=== PATIENT | female | born 1990 | race Caucasian/White ===

== ENCOUNTER 2017-10-15 08:59 | Emergency (ER) | payer SELFPAY ==
[2017-10-15] VITALS (8 sets, daily range): BP systolic 111–139; BP diastolic 60–99; PULSE 83–94; RESP 17–18
--- NOTE | 2017-10-15 10:28 | PD ---
HPI Chief Complaint Elevated BP during , headache, blurry vision, right upper quadrant pain , swelling of face, hands, and feet. Date Seen: Oct 15, 2017 Time Seen: 10:15 Travel History International Travel<30 Days: Yes Contact w/Intl Traveler<30Days: Yes Name of Country Traveled to: [facility] History of Present Illness HPI Patient is a 27-year-old at 32 weeks and 6 days with history of preeclampsia in a previous who presents to OB triage complaining of elevated blood pressure during , headache, blurry vision, right upper quadrant pain, swelling of face hands and feet. Patient has received care in the [facility]. [place] in the [place] yesterday. She reports elevated blood pressures up to 175/80 during this , starting at week 27. She was prescribed an unknown blood pressure medication 3 weeks, which was discontinued approximately 2 weeks ago. She denies aspirin use during this . Patient has also been experiencing constant headaches and back pain; Tylenol provides some relief. Headaches and swelling started at approximately 29 weeks. Patient reports swelling of face, hands and feet. She states that she often has hard time walking because of swelling. She also experiences numbness in her hands due to swelling. She has noticed that swelling has been getting worse over the last few weeks. Patient reports left calf pain. Patient reports blurry vision twice per day. She describes seeing white spots and stars. Blurry vision started Thursday. She also reports right upper quadrant pain since Thursday. She describes the pain as a sharp random pain. She reports lower abdominal and groin pain. She denies history of seizures. She denies contractions. She denies vaginal bleeding and gush of fluid. She reports positive movement. Of note, patient reports receiving 2 shots of betamethasone; she received the first shot last month and the second shot last week. Patient has had nothing to eat or drink since midnight. Weeks Gestation: 32 Para: 4 : 6 Miscarriage: 2 History Past Medical History Medical History: Denies Significant Hx Obstetric History Obstetric History G1 - full-term, vaginal G2 - full-term, vaginal G3 - 29 weeks, emergency , twin gestation; preeclampsia and placental abruption s/p blood transfusion G4 - miscarriage at 10 weeks G5 - miscarriage at 7 weeks Past Surgical History Narrative Surgical 1 Breast augmentation Liposuction Family History Family History: Negative Social History Alcohol Use: No Tobacco Use: No Substance Abuse: No Allergies-Medications (Allergen,Severity, Reaction): Coded Allergies: No Known Allergies (Unverified , 10/15/17) Home Meds Active Scripts Aspirin (Aspirin Low Dose) 81 Mg Chew, 81 MG CHEW DAILY, #30 TAB 0 Refills Prov:Jessica York MD R1 10/15/17 Pnv No.95/Ferrous Fum/Folic AC ( Vitamins Tablet) 28 Mg Iron-800 Mcg Tablet, 1 TAB PO DAILY, #30 TAB Prov:Jessica York MD R1 10/15/17 Review of Systems Except as stated in HPI: all other systems reviewed are Neg Physical Exam BP 145/99, 131/77, 123/85, 132/84, 139/99, 132/92, 132/89, 129/84 HR 95 RR 18 T 98.3 Narrative GENERAL: Well-nourished, well-developed patient. SKIN: Warm and dry. HEAD: Normocephalic and atraumatic. EYES: No scleral icterus. No injection or drainage. ENT: No nasal drainage noted. Mucous membranes pink. Airway patent. NECK: Supple, trachea midline. No JVD. CARDIOVASCULAR: Regular rate and rhythm without murmurs, gallops, or rubs. RESPIRATORY: Breath sounds equal bilaterally. No accessory muscle use. ABDOMEN/GI: Abdomen soft, tenderness over right upper quadrant, bowel sounds present, no rebound, no guarding Gravid to 32 weeks size GENITOURINARY: External Genitalia: Intact and normal in appearance Dilatation: Closed Consistency: Soft, long, thick Station: Posterior Membranes: Intact Uterine Contractions: None FHT's: Category: 1 Baseline: 140 Reactive: + Variability: Moderate Decels: None EXTREMITIES: +1 lower extremity edema, left slightly greater than right. BACK: Nontender without obvious deformity. No CVA tenderness. NEUROLOGICAL: Awake and alert. Motor and sensory grossly within normal limits. Five out of 5 muscle strength in all muscle groups. Normal speech. Data Data Vital Signs Reviewed: Yes Orders Orders Vital Signs (Adult) .ON ADMISSION (10/15/17 10:24) ^ Labor Status (10/15/17 10:24) Urinalysis - C+S If Indicated (10/15/17 10:24) ^ Non Stress Test (10/15/17 10:24) Cbc No Diff, Includes Plts (10/15/17 10:24) Comprehensive Metabolic Panel (10/15/17 10:24) Acetaminophen (Tylenol) (10/15/17 10:30) Ondansetron Inj (Zofran Inj) (10/15/17 10:30) Us Leg Venous Doppler (10/15/17 ) MDM Plan Patient is a 27-year-old at 32 weeks and 6 days with history of preeclampsia in a previous who presents to OB triage complaining of elevated blood pressure during , headache, blurry vision, right upper quadrant pain, swelling of face, hands and feet. Patient has received care in the [place]. She arrived in the [place] yesterday. * Continuous monitoring: Category: 1, Baseline: 140, Reactive: +, Variability: Moderate, Decels: None * Vitalis within normal limits. * UA -grossly within normal limits. * CBC - grossly within normal limits. * CMP grossly within normal limits. * Ultrasound left lower extremity - negative. * Discharge home. * Tylenol and warm showers for pain control. * Recommended 81mg Aspirin due to history of preeclampsia. To stop at 36 weeks. Discussed with OB hospitalist. Diagnosis Diagnosis: Primary Impression: Elevated blood pressure reading Additional Impressions: Headache Swelling Abdominal pain Ruled Out: DVT (deep vein thrombosis) in , Preeclampsia Disposition: 01 DISCHARGE HOME Condition: Stable Scripts Aspirin (Aspirin Low Dose) 81 Mg Chew 81 MG CHEW DAILY, #30 TAB 0 Refills Prov: Jessica York MD R1 10/15/17 Pnv No.95/Ferrous Fum/Folic AC ( Vitamins Tablet) 28 Mg Iron-800 Mcg Tablet 1 TAB PO DAILY, #30 TAB Prov: Jessica York MD R1 10/15/17 Referrals: Jessica York MD R1 1 week Jessica York MD R1 Oct 15, 2017 10:28
[2017-10-15] MEDS ORDERED: ONDANSETRON HCL 4 MG/2 ML VIAL IV PUSH ONE (10:30)
[2017-10-15] MEDS ORDERED: ACETAMINOPHEN 325 MG TAB PO ONE (10:30)
[2017-10-15] MEDS ORDERED: PRENTAB7 PO (10:48)
[2017-10-15 11:21] LABS: HEMATOCRIT 37.9 % (35.0-46.0); HEMOGLOBIN 12.5 GM/DL (11.6-15.3); MEAN CELL VOLUME 79.2 FL (80.0-100.0); MEAN CORPUSCULAR HGB CONC 32.9 % (32.0-36.0); MEAN PLATELET VOLUME 7.2 FL (7.0-11.0); PLATELET COUNT 364 TH/MM3 (150-450); RED BLOOD COUNT 4.79 MIL/MM3 (4.00-5.30); RED CELL DISTRIBUTION WIDTH 16.3 % (11.6-17.2); WHITE BLOOD COUNT 13.2 TH/MM3 (4.0-11.0)
[2017-10-15 11:29] LABS: BACTERIA, URINE RARE /hpf; BILIRUBIN, URINE NEG (NEG); BLOOD, URINE NEG (NEG); GLUCOSE,URINE NEG (NEG); HYALINE CAST, URINE 1 /lpf (RARE); KETONE, URINE NEG (NEG); MUCUS URINE FEW /lpf (OCC); NITRITE,URINE NEG (NEG); SQUAMOUS EPITHELIAL CELL URINE 9 /hpf (0-5); URINE COLOR YELLOW (YELLW/STRAW); URINE LEUKOCYTE ESTERASE SMALL (NEG)
--- NOTE | 2017-10-15 11:31 | RADRPT ---
EXAM DATE/TIME: 10/15/2017 10:46 [place] COMPARISON: No previous studies available for comparison. INDICATIONS : Left leg pain. MEDICAL HISTORY : 33 week . Hypertension in . Headache. Blurry vision. Swelling in feet and hands. SURGICAL HISTORY : ENCOUNTER: Initial ACUITY: 1 day PAIN SCORE: 10/10 LOCATION: Left leg. TECHNIQUE: Venous ultrasound of the leg was performed from the inguinal ligament to the proximal calf. Real-racheal e, color Doppler and spectral tracing, compression and augmentation techniques were used. FINDINGS: There is normal compressibility of the deep venous system from the inguinal region to the proximal ca lf. No echogenic clot is seen in the lumen of the common femoral, femoral, popliteal, and posterior tibial veins. There is a normal response of the venous system to proximal and distal augmentation an d respiration. CONCLUSION: No evidence of left lower extremity DVT. Benny Mendoza MD on October 15, 2017 at 11:28 Board Certified Radiologist. This report was verified electronically.
[2017-10-15 11:51] LABS: ALBUMIN 2.4 GM/DL (3.4-5.0); AST (GOT) 11 U/L (15-37); BICARBONATE 24.6 MEQ/L (21.0-32.0); BLOOD UREA NITROGEN 6 MG/DL (7-18); CALCIUM 9.2 MG/DL (8.5-10.1); CHLORIDE 105 MEQ/L (98-107); CREATININE 0.52 MG/DL (0.50-1.00); GLOMERULAR FILTRATION RATE 141 ML/MIN (>89); GLUCOSE,RANDOM 88 MG/DL (74-106); SODIUM (NA) 138 MEQ/L (136-145)
[2017-10-15 11:52] LABS: ALT (GPT) 12 U/L (10-53)
[2017-10-15 11:55] LABS: ALKALINE PHOSPHATASE 164 U/L (45-117); TOTAL BILIRUBIN ADULT 0.4 MG/DL (0.2-1.0); TOTAL PROTEIN 6.7 GM/DL (6.4-8.2)
[2017-10-15] MEDS ORDERED: ASPI81CH6 CHEW (12:11)
== END 2017-10-15 12:23 | disposition home or self-care (01) ==
LOC: HOBED 08:59
DX: O16.3 Unspecified maternal hypertension, third trimester (principal); R51 Headache; M79.89 Other specified soft tissue disorders; Z3A.32 32 weeks gestation of pregnancy; R10.11 Right upper quadrant pain; H53.8 Other visual disturbances
CPT/HCPCS: 36415; 59025; 80053; 81001; 84550; 85027; 93971

== ENCOUNTER 2017-10-26 00:32 | Emergency (ER) | payer SELFPAY ==
[2017-10-26] VITALS (9 sets, daily range): BP systolic 140–142; BP diastolic 87–96; PULSE 82–105; RESP 18
[~2017-10-26 00:32] MED LIST: ASPI81CH6 CHEW; PRENTAB7 PO
--- NOTE | 2017-10-26 01:36 | PD ---
HPI Chief Complaint elevated BPs Date Seen: Oct 26, 2017 Time Seen: 01:25 Travel History International Travel<30 Days: No Contact w/Intl Traveler<30Days: No Known Affected Area: No History of Present Illness HPI Pt is a 27y/o @ 34.3wks. She presents for elevated BPs at home 140-150/ 90s. Pt relocated to the from the last week. She has not established PNC since arrival. She has a history of preE with abruption and of twins at 29wks with last viable (11 months ago, 2 subsequent SABs thereafter). She states that around 28wks of this , her BPs became elevated. She was given aldomet which she took x3wks but then it was discontinued. She was seen in triage here at [place] last week and started on ASA 81mg qday which she has been taking. She reports BMZ x [address] around 29wks. She denies any HTN outside of . She reports mild edema and ARRIAGA which improves (but does not resolve) with tylenol. No LOF/VB/ctx. +FM. Weeks Gestation: 34 Para: 3 : 6 History Past Medical History Medical History: Denies Significant Hx Obstetric History Obstetric History 1. FT 2. FT 3. 29wk , twins, preE, abruption, transfusion 4. SAB @ 10wks 5. SAB @ 7wks 6. current Past Surgical History Narrative Surgical CS x1 breast augmentation liposuction Family History Family History: Negative Social History Alcohol Use: No Tobacco Use: No Substance Abuse: No Allergies-Medications (Allergen,Severity, Reaction): Coded Allergies: No Known Allergies (Unverified , 10/15/17) Home Meds Active Scripts Aspirin (Aspirin Low Dose) 81 Mg Chew, 81 MG CHEW DAILY, #30 TAB 0 Refills Prov:Jessica York MD R1 10/15/17 Pnv No.95/Ferrous Fum/Folic AC ( Vitamins Tablet) 28 Mg Iron-800 Mcg Tablet, 1 TAB PO DAILY, #30 TAB Prov:Jessica York MD R1 10/15/17 Review of Systems Except as stated in HPI: all other systems reviewed are Neg Physical Exam Vital Signs Date Time Temp Pulse Resp B/P (MAP) Pulse Ox O2 Delivery O2 Flow Rate FiO2 10/26/17 01:08 97 142/96 (111) 10/26/17 01:05 93 10/26/17 01:00 98 Narrative General: well developed, well nourished, no acute distress HEENT: normocephalic atraumatic, extraocular movements intact, neck supple Abdomen: soft, gravid, nontender, nondistended Uterus: fundus non-tender Extremities: full range of motion Skin: normal coloration, no rashes, no suspicious skin lesions noted Neurologic: cranial nerves 2-12 grossly intact, normal muscle tone, normal gait Psychiatric: normal mood and affect, appropriate FHTs: 145, +accels, no decels, moderate variability, reactive [place]: quiet Cvx: deferred Data Data Vital Signs Reviewed: Yes Orders Orders Vital Signs (Adult) .ON ADMISSION (10/26/17 01:10) ^ Labor Status (10/26/17 01:10) Urinalysis - C+S If Indicated (10/26/17 01:10) ^ Non Stress Test (10/26/17 01:10) Cbc No Diff, Includes Plts (10/26/17 01:10) Comprehensive Metabolic Panel (10/26/17 01:10) Drug Screen, Random Urine (10/26/17 01:10) Protein Creat Ratio, Random Ur (10/26/17 01:10) Uric Acid (10/26/17 01:19) MDM Plan 27y/o @ 34.3wks with h/o preE and of twins at 29wks presents with increased BPs. -- CBC, CMP, UA, Pr:Cr, uric acid ordered -- FHTs cat 1 Dispo: gHTN vs preE dx pending; dispo to follow Diagnosis Diagnosis: Primary Impression: 34 weeks gestation of Additional Impressions: Elevated blood pressure affecting in third trimester, antepartum History of section, unknown scar History of pre-eclampsia in prior , currently in third trimester Short interval between pregnancies affecting in third trimester, antepartum Chucho Cheung MD Oct 26, 2017 01:36
[2017-10-26 01:47] LABS: HEMATOCRIT 35.1 % (35.0-46.0); HEMOGLOBIN 11.7 GM/DL (11.6-15.3); MEAN CELL VOLUME 78.7 FL (80.0-100.0); MEAN CORPUSCULAR HEMOGLOBIN 26.3 PG (27.0-34.0); MEAN CORPUSCULAR HGB CONC 33.4 % (32.0-36.0); MEAN PLATELET VOLUME 7.8 FL (7.0-11.0); PLATELET COUNT 302 TH/MM3 (150-450); RED BLOOD COUNT 4.47 MIL/MM3 (4.00-5.30); RED CELL DISTRIBUTION WIDTH 15.7 % (11.6-17.2); WHITE BLOOD COUNT 15.3 TH/MM3 (4.0-11.0)
[2017-10-26 01:53] LABS: BACTERIA, URINE RARE /hpf; BILIRUBIN, URINE NEG (NEG); BLOOD, URINE NEG (NEG); CALCIUM OXALATE CRYSTALS,URINE MOD /hpf; GLUCOSE,URINE NEG (NEG); KETONE, URINE TRACE mg/dL (NEG); MUCUS URINE FEW /lpf (OCC); NITRITE,URINE NEG (NEG); SQUAMOUS EPITHELIAL CELL URINE 3 /hpf (0-5); URINE COLOR YELLOW (YELLW/STRAW); URINE LEUKOCYTE ESTERASE MOD (NEG)
[2017-10-26 02:12] LABS: ALBUMIN 2.3 GM/DL (3.4-5.0); ALT (GPT) 10 U/L (10-53); AST (GOT) 12 U/L (15-37); BICARBONATE 25.4 MEQ/L (21.0-32.0); BLOOD UREA NITROGEN 10 MG/DL (7-18); CALCIUM 9.2 MG/DL (8.5-10.1); CHLORIDE 107 MEQ/L (98-107); CREATININE 0.59 MG/DL (0.50-1.00); GLOMERULAR FILTRATION RATE 122 ML/MIN (>89); GLUCOSE,RANDOM 96 MG/DL (74-106); SODIUM (NA) 140 MEQ/L (136-145)
[2017-10-26 02:14] LABS: ALKALINE PHOSPHATASE 173 U/L (45-117); TOTAL BILIRUBIN ADULT 0.2 MG/DL (0.2-1.0); TOTAL PROTEIN 6.7 GM/DL (6.4-8.2)
== END 2017-10-26 02:45 | disposition home or self-care (01) ==
LOC: HOBED 00:32
DX: O13.3 Gestational [pregnancy-induced] hypertension without significant proteinuria, third trimester (principal); Z3A.34 34 weeks gestation of pregnancy; Z87.59 Personal history of other complications of pregnancy, childbirth and the puerperium; Z79.899 Other long term (current) drug therapy
CPT/HCPCS: 36415; 59025; 80053; 80307; 81001; 82570; 84156; 84550; 85027

== ENCOUNTER 2017-11-02 14:28 | Emergency (ER) | payer OTHER ==
--- NOTE | 2017-11-02 15:52 | PD ---
HPI Chief Complaint increased BP Date Seen: Nov 02, 2017 Time Seen: 15:10 Travel History International Travel<30 Days: Yes Contact w/Intl Traveler<30Days: Yes Name of Country Traveled to: [facility] Known Affected Area: Yes History of Present Illness HPI 27 y/o at 35/3 weeks presents with elevated blood pressure. She states she took her blood pressure at home today and was elevated to 160s systolic. She was seen here in the ED a week ago and worked up for pre- eclampsia. Labs were fairly wnl and was started on Procardia 30mg daily. She states her lower extremities have been swollen throughout . She just moved here from [facility] several weeks ago and was on a medication there as well for HTN. She has not found care here yet. Endorses some headache. Denies any vaginal bleeding, loss of fluids, contractions. Endorses good movement. Her last was complicated by pre-eclampsia and required at 29 weeks. Weeks Gestation: 35 Para: 3 : 6 Miscarriage: 2 History Past Medical History Medical History: Denies Significant Hx Obstetric History Obstetric History at term Miscarriage at term Miscarriage at 29 weeks. Past Surgical History Narrative Surgical Liposuction Breast augmentation Family History Family History: Negative Social History Alcohol Use: No Tobacco Use: No Substance Abuse: No Allergies-Medications (Allergen,Severity, Reaction): Coded Allergies: No Known Allergies (Unverified , 10/26/17) Home Meds Active Scripts Aspirin (Aspirin Low Dose) 81 Mg Chew, 81 MG CHEW DAILY, #30 TAB 0 Refills Prov:Jessica York MD R1 10/15/17 Pnv No.95/Ferrous Fum/Folic AC ( Vitamins Tablet) 28 Mg Iron-800 Mcg Tablet, 1 TAB PO DAILY, #30 TAB Prov:Jessica York MD R1 10/15/17 Review of Systems General / Constitutional: Weight Gain, No: Fever, Weight Loss, Chills, Other Eyes: No: Diploplia, Blurred Vision, Visual changes, Pain, Photophobia HENT: No: Headaches, Vertigo, Lightheadedness Cardiovascular: Edema, No: Irregular Rhythm, Chest Pain or Discomfort, Palpitations, Tachycardia, Syncope, Varicosities, Cyanosis Respiratory: No: Cough, Short of Breath, Other Gastrointestinal: No: Nausea, Vomiting, Diarrhea Genitourinary: Pelvic Pain, No: Urgency, Frequency, Dysuria, Decreased Urinary Output, Oliguria, Incontinence, Menorrhagia, Vaginal Bleeding Musculoskeletal: No: Limited ROM, Weakness, Cramping, Edema, Pain Skin: No Rash, No Itching, No Dryness, No Lumps, No Change in Pigmentation, No Change in Nails, No Alopecia, No Lesions Neurologic: No: Weakness, Dizziness, Syncope, Focal Abnormalities, Coordination Problem, Headache, Slurred Speech, Seizures Psychiatric: No: Depression, Suicidal Ideations, Homicidal Ideation Endocrine: No: Heat Intolerance, Cold Intolerance, Polydipsia, Polyuria, Other Physical Exam Narrative GENERAL: Well-nourished, well-developed patient. SKIN: Warm and dry. HEAD: Normocephalic and atraumatic. EYES: No scleral icterus. No injection or drainage. ENT: No nasal drainage noted. Mucous membranes pink. Airway patent. NECK: Supple, trachea midline. No JVD. CARDIOVASCULAR: Regular rate and rhythm without murmurs, gallops, or rubs. RESPIRATORY: Breath sounds equal bilaterally. No accessory muscle use. ABDOMEN/GI: Abdomen soft, non-tender, bowel sounds present, no rebound, no guarding Gravid to 35 weeks size GENITOURINARY: External Genitalia: intact and normal in appearance Cervix: [-] Dilatation: [-] Effacement: [-] Station: [-] Presentation: [-] Membranes: [intact or ruptured] Uterine Contractions: [-] FHT's: Category: 1 Baseline: 140 Reactive: yes Variability: moderate Decels: none EXTREMITIES: 1+ edema bilateral LE BACK: Nontender without obvious deformity. No CVA tenderness. NEUROLOGICAL: Awake and alert. Motor and sensory grossly within normal limits. Five out of 5 muscle strength in all muscle groups. Normal speech. Data Data Vital Signs Reviewed: Yes Orders Orders Vital Signs (Adult) .ON ADMISSION (11/02/17 15:51) ^ Labor Status (11/02/17 15:51) ^ Non Stress Test (11/02/17 15:51) [facility] Medical Record Reviewed: Yes Interpretation(s) 27 y/o at 35/3 weeks presents with elevated blood pressure at home Blood pressures have been stable in ED: up to 144/98 initially, then down to 126 /57 Category 1 FHT Urine dipstick shows 30 protein, otherwise wnl Hypertension in , third trimester -Continue Procardia -Needs to establish for care, will try to establish in [facility] with Dr. Santiago. -D/c home in stable condition -Return to ED if worsening blood pressure, vaginal bleeding, severe/frequent contractions Diagnosis Diagnosis: Primary Impression: Hypertension affecting Qualified Codes: O16.3 - Unspecified maternal hypertension, third trimester Disposition: DISCHARGE HOME Condition: Stable Patient Instructions: Preeclampsia (ED), General Instructions Han Peraza MD Nov 02, 2017 15:52
== END 2017-11-02 16:23 | disposition home or self-care (01) ==
LOC: HOBED 14:28
DX: O16.3 Unspecified maternal hypertension, third trimester (principal); Z79.82 Long term (current) use of aspirin; Z3A.35 35 weeks gestation of pregnancy
CPT/HCPCS: 59025

== ENCOUNTER 2017-11-09 11:41 | Inpatient (IN) | payer OTHER ==
[2017-11-09] VITALS (37 sets, daily range): BP systolic 120–173; BP diastolic 54–115; PULSE 71–102; RESP 16–18; TEMP 97.7–98; O2SAT 99–100
[2017-11-09] MEDS ORDERED: PROPOFOL 200 MG/20 ML AMP IV ONE (12:00)
[2017-11-09] MEDS ORDERED: LACTATED RINGER'S 1000 ML INJ 1,000 ML IV ONE ×2 (12:00→12:15)
[2017-11-09] MEDS ORDERED: DEXAMETHASONE SOD PHOS 4 MG/ML VIAL IV ONE (12:00)
[2017-11-09] MEDS ORDERED: OXYTOCIN 10 UNIT/ML AMP IV ONE (12:00)
[2017-11-09] MEDS ORDERED: ONDANSETRON HCL 4 MG/2 ML VIAL IV ONE (12:00)
[2017-11-09] MEDS ORDERED: hydrALAZINE HCL 20 MG/ML VIAL IV PUSH PRN ×2 (12:15→12:45)
--- NOTE | 2017-11-09 12:15 | PD ---
HPI Chief Complaint Hypertension in Travel History International Travel<30 Days: No Contact w/Intl Traveler<30Days: No History of Present Illness HPI 27 year old at 36/3 with past history of placental abruption presents from her primary care office for hypertension in . The patient states she took her blood pressure at home which was 155/110 which prompted her to come in. She had been seen previously in the OB ED for hypertension and prescribed nifedipine which she had been taking regularly until yesterday. She reports she did not take her medication yesterday or today. She reports she has had a headache for approximately one week, has not changed severity. She also notes swelling in her legs, arms, face which have all increased in severity over the past week. No changes in vision. No chest pain. Reports some mild shortness of breath the past 2 days. Denies any seizure-like activity. No large gushes of fluid from below, blood per vagina, fluid discharge or abnormal smells or colors. Denies dysuria, hematuria, change in color or smell. Mild increase in frequency over the past 2 days. Denies change in bowel habits. Denies nausea, vomiting, fever, chills, abdominal pain. Reports she had 2 high blood pressure readings and her primary care office which prompted them to send her to the OB ED. Weeks Gestation: 36 Para: 4 : 6 History Past Medical History Medical History: Denies Significant Hx Past Surgical History Narrative Surgical Breast augmentation Abdominal liposuction Family History Family History: Negative Social History Alcohol Use: No Tobacco Use: No Substance Abuse: No Allergies-Medications (Allergen,Severity, Reaction): Coded Allergies: No Known Allergies (Unverified , 10/26/17) Home Meds Active Scripts Aspirin (Aspirin Low Dose) 81 Mg Chew, 81 MG CHEW DAILY, #30 TAB 0 Refills Prov:Jessica York MD R1 10/15/17 Pnv No.95/Ferrous Fum/Folic AC ( Vitamins Tablet) 28 Mg Iron-800 Mcg Tablet, 1 TAB PO DAILY, #30 TAB Prov:Jessica York MD R1 10/15/17 Review of Systems General / Constitutional: No: Fever, Chills Eyes: No: Diploplia, Blurred Vision, Visual changes, Photophobia HENT: Headaches, Vertigo Cardiovascular: No: Irregular Rhythm, Chest Pain or Discomfort, Palpitations Respiratory: No: Cough, Short of Breath, Wheezing Gastrointestinal: No: Nausea, Vomiting, Diarrhea, Abdominal Pain, Hematemesis, Hematochezia, Constipation, Changes in Bowel Habits Genitourinary: Frequency, No: Urgency, Dysuria, Nocturia, Hematuria Musculoskeletal: No: Weakness, Cramping Skin: No Rash, No Itching, No Dryness Neurologic: No: Weakness, Syncope, Seizures Psychiatric: No: Anxiety, Depression Hematologic/Lymphatic: No Easy Bruising, No Lymph Node Enlargement Physical Exam Narrative GENERAL: Well-nourished, well-developed patient. SKIN: Warm and dry. 3+ swelling in arms, legs, face. HEAD: Normocephalic and atraumatic. EYES: No scleral icterus. No injection or drainage. ENT: No nasal drainage noted. Mucous membranes pink. Airway patent. NECK: Supple, trachea midline. No JVD. CARDIOVASCULAR: Regular rate and rhythm without murmurs, gallops, or rubs. RESPIRATORY: Breath sounds equal bilaterally. No accessory muscle use. BREASTS: Bilateral exam showed no masses , no retractions, no nipple discharge. ABDOMEN/GI: Abdomen soft, non-tender, bowel sounds present, no rebound, no guarding GENITOURINARY: External Genitalia: intact and normal in appearance FHT's: Category: 1 Baseline: 140 Reactive: yes Variability: moderate Decels: none EXTREMITIES: No cyanosis or edema. BACK: Nontender without obvious deformity. No CVA tenderness. NEUROLOGICAL: Awake and alert. Motor and sensory grossly within normal limits. Five out of 5 muscle strength in all muscle groups. 3+ patellar reflexes Normal speech. MDM Plan 27 year old at 36/3 with past history of placental abruption presents from her primary care office for hypertension in , continues to have hypertension as well as swelling and headache. -FHT category1 -Monitor FHT -Magnesium bolus, scheduled -Monitor for signs of magnesium toxicity -Hydralazine prn hypertension - today D/W dr. Stanton Diagnosis Diagnosis: Primary Impression: Preeclampsia Qualified Codes: O14.93 - Unspecified pre-eclampsia, third trimester Parth Mark MD R1 Nov 09, 2017 12:15
--- NOTE | 2017-11-09 12:39 | HHI.HP ---
History & Physical H&P HPI HPI Chief Complaint Hypertension in Travel History International Travel<30 Days: No Contact w/Intl Traveler<30Days: No History of Present Illness HPI 27 year old at 36/3 with past history of placental abruption presents from her primary care office for hypertension in . The patient states she took her blood pressure at home which was 155/110 which prompted her to come in. She had been seen previously in the OB ED for hypertension and prescribed nifedipine which she had been taking regularly until yesterday. She reports she did not take her medication yesterday or today. She reports she has had a headache for approximately one week, has not changed severity. She also notes swelling in her legs, arms, face which have all increased in severity over the past week. No changes in vision. No chest pain. Reports some mild shortness of breath the past 2 days. Denies any seizure-like activity. No large gushes of fluid from below, blood per vagina, fluid discharge or abnormal smells or colors. Denies dysuria, hematuria, change in color or smell. Mild increase in frequency over the past 2 days. Denies change in bowel habits. Denies nausea, vomiting, fever, chills, abdominal pain. Reports she had 2 high blood pressure readings and her primary care office which prompted them to send her to the OB ED. Weeks Gestation: 36 Para: 4 : 6 History (Limited) History Past Medical History Medical History: Denies Significant Hx Past Surgical History Narrative Surgical Breast augmentation Abdominal liposuction Family History Family History: Negative Social History Alcohol Use: No Tobacco Use: No Substance Abuse: No Allergies-Medications Allergies-Medications (Allergen,Severity, Reaction): Coded Allergies: No Known Allergies (Unverified , 10/26/17) Home Meds Active Scripts Aspirin (Aspirin Low Dose) 81 Mg Chew, 81 MG CHEW DAILY, #30 TAB 0 Refills Prov:Jessica York MD R1 10/15/17 Pnv No.95/Ferrous Fum/Folic AC ( Vitamins Tablet) 28 Mg Iron-800 Mcg Tablet, 1 TAB PO DAILY, #30 TAB Prov:Jessica York MD R1 10/15/17 ROS Review of Systems General / Constitutional: No: Fever, Chills Eyes: No: Diploplia, Blurred Vision, Visual changes, Photophobia HENT: Headaches, Vertigo Cardiovascular: No: Irregular Rhythm, Chest Pain or Discomfort, Palpitations Respiratory: No: Cough, Short of Breath, Wheezing Gastrointestinal: No: Nausea, Vomiting, Diarrhea, Abdominal Pain, Hematemesis, Hematochezia, Constipation, Changes in Bowel Habits Genitourinary: Frequency, No: Urgency, Dysuria, Nocturia, Hematuria Musculoskeletal: No: Weakness, Cramping Skin: No Rash, No Itching, No Dryness Neurologic: No: Weakness, Syncope, Seizures Psychiatric: No: Anxiety, Depression Hematologic/Lymphatic: No Easy Bruising, No Lymph Node Enlargement Physical Exam Physical Exam Narrative GENERAL: Well-nourished, well-developed patient. SKIN: Warm and dry. 3+ swelling in arms, legs, face. HEAD: Normocephalic and atraumatic. EYES: No scleral icterus. No injection or drainage. ENT: No nasal drainage noted. Mucous membranes pink. Airway patent. NECK: Supple, trachea midline. No JVD. CARDIOVASCULAR: Regular rate and rhythm without murmurs, gallops, or rubs. RESPIRATORY: Breath sounds equal bilaterally. No accessory muscle use. BREASTS: Bilateral exam showed no masses , no retractions, no nipple discharge. ABDOMEN/GI: Abdomen soft, non-tender, bowel sounds present, no rebound, no guarding GENITOURINARY: External Genitalia: intact and normal in appearance FHT's: Category: 1 Baseline: 140 Reactive: yes Variability: moderate Decels: none EXTREMITIES: No cyanosis or edema. BACK: Nontender without obvious deformity. No CVA tenderness. NEUROLOGICAL: Awake and alert. Motor and sensory grossly within normal limits. Five out of 5 muscle strength in all muscle groups. 3+ patellar reflexes Normal speech. Data Data [facility] MDM Plan 27 year old at 36/3 with past history of placental abruption presents from her primary care office for hypertension in , continues to have hypertension as well as swelling and headache. -FHT category1 -Monitor FHT -Magnesium bolus, scheduled -Monitor for signs of magnesium toxicity -Hydralazine prn hypertension - today D/W dr. Stanton Diagnosis Diagnosis: Primary Impression: Preeclampsia Qualified Codes: O14.93 - Unspecified pre-eclampsia, third trimester Parth Mark MD R1 Nov 09, 2017 12:39
[2017-11-09] MEDS: LACTATED RINGER'S 1000 ML INJ 1,000 ML IV SCH ×3 (12:45→21:16)
[2017-11-09 12:52] LABS: AUTOMATED NEUTROPHIL # 10.1 TH/MM3 (1.8-7.7); BASOPHIL # 0.1 TH/MM3 (0-0.2); BASOPHIL % 0.7 % (0.0-2.0); EOSINOPHIL # 0.1 TH/MM3 (0-0.4); EOSINOPHIL % 0.9 % (0.0-4.0); HEMATOCRIT 38.1 % (35.0-46.0); HEMOGLOBIN 12.8 GM/DL (11.6-15.3); LYMPH % 18.3 % (9.0-44.0); LYMPHOCYTE # 2.6 TH/MM3 (1.0-4.8); MEAN CELL VOLUME 79.4 FL (80.0-100.0); MEAN CORPUSCULAR HEMOGLOBIN 26.7 PG (27.0-34.0); MEAN CORPUSCULAR HGB CONC 33.6 % (32.0-36.0); MEAN PLATELET VOLUME 7.9 FL (7.0-11.0); MONO % 7.9 % (0.0-8.0); MONOCYTE # 1.1 TH/MM3 (0-0.9); NEUT % 72.2 % (16.0-70.0); PLATELET COUNT 318 TH/MM3 (150-450); RED BLOOD COUNT 4.79 MIL/MM3 (4.00-5.30); RED CELL DISTRIBUTION WIDTH 16.9 % (11.6-17.2); WHITE BLOOD COUNT 13.9 TH/MM3 (4.0-11.0)
[2017-11-09] MEDS ORDERED: MAGNESIUM SULFATE 4 GM PREMIX 100 ML IV ONE (13:00)
[2017-11-09 13:06] LABS: AMORPHOUS SEDIMENT, URINE RARE; BACTERIA, URINE MANY /hpf; BILIRUBIN, URINE NEG (NEG); BLOOD, URINE SMALL (NEG); GLUCOSE,URINE NEG (NEG); KETONE, URINE NEG (NEG); MUCUS URINE FEW /lpf (OCC); NITRITE,URINE NEG (NEG); PH, URINE 6.5 (5.0-8.5); SQUAMOUS EPITHELIAL CELL URINE 18 /hpf (0-5); URINE COLOR YELLOW (YELLW/STRAW); URINE LEUKOCYTE ESTERASE LARGE (NEG)
[2017-11-09 13:15] LABS: ALBUMIN 2.6 GM/DL (3.4-5.0); AST (GOT) 5 U/L (15-37); BICARBONATE 23.2 MEQ/L (21.0-32.0); BLOOD UREA NITROGEN 11 MG/DL (7-18); CALCIUM 9.5 MG/DL (8.5-10.1); CHLORIDE 106 MEQ/L (98-107); CREATININE 0.56 MG/DL (0.50-1.00); GLOMERULAR FILTRATION RATE 130 ML/MIN (>89); GLUCOSE,RANDOM 90 MG/DL (74-106); SODIUM (NA) 137 MEQ/L (136-145)
[2017-11-09] MEDS ORDERED: ceFAZolin 2 GM PREMIX 50 ML IV SCH ×2 (13:15→22:00)
[2017-11-09 13:21] LABS: ALKALINE PHOSPHATASE 209 U/L (45-117); ALT (GPT) 7 U/L (10-53); TOTAL BILIRUBIN ADULT 0.3 MG/DL (0.2-1.0); TOTAL PROTEIN 7.3 GM/DL (6.4-8.2)
[2017-11-09] MEDS ORDERED: CITRIC ACID-SODIUM CITRATE LIQ 30 ML UDC PO SCH (13:45)
[2017-11-09] MEDS ORDERED: MORPHINE SULFATE PF 5 MG/10 ML VIAL ONE (14:22)
[2017-11-09] MEDS ORDERED: ZOLPIDEM TARTRATE 5 MG TAB PO PRN (16:30)
[2017-11-09] MEDS ORDERED: KETOROLAC TROMETHAMINE 60 MG/2 ML (IM) VIAL IM PRN (16:30)
[2017-11-09] MEDS ORDERED: OXYTOCIN 30 UNITS-500ML PREMIX 500 ML IV ONE (16:30)
[2017-11-09] MEDS ORDERED: SODIUM CHLORIDE 0.9% FLUSH 10 ML FLUSH IV FLUSH PRN (16:30)
[2017-11-09] MEDS ORDERED: oxyCODONE/ACETAMINOPHEN 5 MG/325 MG TAB PO PRN (16:30)
[2017-11-09] MEDS ORDERED: IBUPROFEN 600 MG TAB PO PRN (16:30)
[2017-11-09] MEDS ORDERED: ONDANSETRON HCL 4 MG/2 ML VIAL IV PUSH PRN (16:30)
[2017-11-09] MEDS ORDERED: ACETAMINOPHEN 325 MG TAB PO PRN (16:30)
[2017-11-09] MEDS ORDERED: SIMETHICONE 80 MG CHEWABLE TAB PO PRN (16:30)
[2017-11-09] MEDS ORDERED: MAGNESIUM SULFATE 40 GM PREMIX 1,000 ML ONE (16:43)
[2017-11-09] MEDS ORDERED: OXYTOCIN 30 UNITS-500ML PREMIX 500 ML ONE (16:43)
[2017-11-09] MEDS: MAGNESIUM SULFATE 40 GM PREMIX 1,000 ML IV SCH (16:51)
[2017-11-09] MEDS ORDERED: diphenhydrAMINE HCL 50 MG/ML VIAL ONE (19:34)
[2017-11-09] MEDS ORDERED: diphenhydrAMINE HCL 50 MG/ML VIAL IV PUSH PRN (20:00)
[2017-11-09] MEDS: oxyCODONE/ACETAMINOPHEN 5 MG/325 MG TAB PO PRN (23:00)
[2017-11-10] VITALS (37 sets, daily range): BP systolic 112–142; BP diastolic 57–91; PULSE 79–108; RESP 16–18; TEMP 98–98.9; O2SAT 96–97
[2017-11-10] MEDS: LACTATED RINGER'S 1000 ML INJ 1,000 ML IV SCH ×4 (02:05→15:25)
[2017-11-10] MEDS ORDERED: OXYTOCIN 30 UNITS-500ML PREMIX 500 ML IV PRN (02:30)
[2017-11-10] MEDS ORDERED: ceFAZolin 2 GM PREMIX 50 ML IV SCH (06:00)
[2017-11-10] MEDS: oxyCODONE/ACETAMINOPHEN 5 MG/325 MG TAB PO PRN ×4 (06:03→21:38)
[2017-11-10 06:16] LABS: AUTOMATED NEUTROPHIL # 15.9 TH/MM3 (1.8-7.7); BASOPHIL % 0.1 % (0.0-2.0); EOSINOPHIL % 0.1 % (0.0-4.0); HEMATOCRIT 34.8 % (35.0-46.0); HEMOGLOBIN 11.3 GM/DL (11.6-15.3); LYMPH % 13.8 % (9.0-44.0); LYMPHOCYTE # 2.8 TH/MM3 (1.0-4.8); MEAN CELL VOLUME 81.2 FL (80.0-100.0); MEAN CORPUSCULAR HEMOGLOBIN 26.4 PG (27.0-34.0); MEAN CORPUSCULAR HGB CONC 32.5 % (32.0-36.0); MEAN PLATELET VOLUME 7.8 FL (7.0-11.0); MONO % 6.9 % (0.0-8.0); MONOCYTE # 1.4 TH/MM3 (0-0.9); NEUT % 79.1 % (16.0-70.0); PLATELET COUNT 283 TH/MM3 (150-450); RED BLOOD COUNT 4.28 MIL/MM3 (4.00-5.30); RED CELL DISTRIBUTION WIDTH 17.2 % (11.6-17.2); WHITE BLOOD COUNT 20.1 TH/MM3 (4.0-11.0)
--- NOTE | 2017-11-10 08:14 | HHI.OB ---
Subjective Post Operative Day: 1 Remarks Postoperative day number 1. AFVSS overnight. Pain well-controlled. Incision not draining. Decreased lochia. Denies dysuria. No breast tenderness. She is feeding the baby via breast/bottle. Appetite good. No nausea or vomiting. No flatus. no bowel movement. Ambulating well. Denies calf pain, shortness of breath, or cough. Otherwise, she is doing well this morning and has no other complaints. Objective Vitals/I&O Vital Signs Date Time Temp Pulse Resp B/P (MAP) Pulse Ox O2 Delivery O2 Flow Rate FiO2 11/10/17 07:54 97 11/10/17 07:47 98.6 18 11/10/17 07:01 85 135/88 (104) 11/10/17 06:01 89 18 136/73 (94) 11/10/17 06:00 18 11/10/17 05:01 83 133/81 (98) 11/10/17 04:01 83 135/59 (84) 11/10/17 03:01 81 132/74 (93) 11/10/17 02:35 98.0 11/10/17 02:34 18 11/10/17 02:01 81 142/69 (93) 11/10/17 01:01 82 141/57 (85) 11/10/17 00:47 18 11/10/17 00:01 82 128/68 (88) 11/09/17 23:01 88 138/65 (89) 11/09/17 22:43 98.0 11/09/17 22:31 18 11/09/17 22:00 87 143/91 (108) 11/09/17 21:01 88 130/69 (89) 11/09/17 20:04 18 11/09/17 20:01 84 130/78 (95) 11/09/17 19:42 97.9 11/09/17 19:41 18 11/09/17 19:00 81 132/86 (101) 11/09/17 18:30 83 100 11/09/17 18:10 17 11/09/17 18:01 77 139/80 (99) 11/09/17 17:57 85 149/88 (108) 11/09/17 17:55 18 11/09/17 17:24 97.7 11/09/17 17:16 100 2/19/18 17:16 73 16 127/87 (100) 11/09/17 17:05 71 18 121/69 (86) 100 11/09/17 16:55 18 11/09/17 16:55 74 173/61 (98) 11/09/17 16:40 73 18 100 11/09/17 16:40 137/60 (85) 11/09/17 16:32 99 11/09/17 16:32 85 18 120/71 (87) 11/09/17 16:20 89 18 126/72 (90) 100 11/09/17 16:20 97.8 11/09/17 14:21 99 147/80 (102) 11/09/17 14:11 94 156/115 (129) 11/09/17 14:01 95 148/94 (112) 11/09/17 13:51 91 137/87 (104) 11/09/17 13:41 100 11/09/17 13:41 151/99 (116) 11/09/17 13:32 131/54 (79) 11/09/17 13:32 100 11/09/17 13:21 98 141/114 (123) 11/09/17 13:11 97 133/91 (105) 11/09/17 13:01 90 136/85 (102) 11/09/17 12:55 98 149/99 (116) 11/09/17 12:53 93 146/99 (115) 11/09/17 12:30 101 146/107 (120) 11/09/17 12:20 94 143/98 (113) 11/09/17 12:11 101 152/98 (116) 11/09/17 12:03 102 160/114 (129) Result Diagram: 11/10/17 0501 11/09/17 1237 Objective Remarks GENERAL: Well-nourished, well-developed patient. CARDIOVASCULAR: Regular rate and rhythm without murmurs, gallops, or rubs. RESPIRATORY: Breath sounds equal bilaterally. No accessory muscle use. ABDOMEN/GI: Abdomen soft, non-tender, bowel sounds present. Incision: Clean, dry and intact. Fundus: Firm, non-tender at umbilicus. GENITOURINARY: Light to moderate bleeding. EXTREMITIES: No cyanosis or edema, non-tender, without signs of DVT. Medications and IVs Current Medications Medications (Trade) Dose Ordered Sig/Ann Route Start Time Stop Time Status Last Admin Lactated Ringer's 1,000 ml @ 150 mls/hr Q6H40M IV 11/09/17 12:45 (Bicitra Liq) 30 ml BOTANY LABORATORY ASSISTANT PO 11/09/17 13:45 11/13/17 13:44 11/09/17 14:17 Magnesium Sulfate 1,000 ml @ 50 mls/hr Q20H IV 11/09/17 12:15 11/09/17 16:51 (Apresoline Inj) 5 mg NOW PRN IV PUSH 11/09/17 12:15 11/10/17 12:14 (Apresoline Inj) 10 mg NOW PRN IV PUSH 11/09/17 12:45 11/10/17 12:44 Lactated Ringer's 1,000 ml @ 100 mls/hr Q10H IV 11/09/17 21:16 11/10/17 17:15 11/09/17 21:16 Oxytocin 500 ml @ 100 mls/hr UNSCH X1 PRN IV 11/10/17 02:30 11/11/17 02:29 (NS Flush) 2 ml BID IV FLUSH 11/09/17 21:00 (NS Flush) 2 ml UNSCH PRN IV FLUSH 11/09/17 16:30 (Mylicon Chew) 80 mg QID PRN PO 11/09/17 16:30 (Tylenol) 650 mg Q6H PRN PO 11/09/17 16:30 (Toradol Inj) 60 mg UNSCH X1 PRN IM 11/09/17 16:30 11/10/17 16:29 11/09/17 19:40 (Percocet 5-325 Mg) 1 tab Q4H PRN PO 11/09/17 16:30 (Percocet 5-325 Mg) 2 tab Q4H PRN PO 11/09/17 16:30 11/10/17 06:03 (Romina-Colace) 2 tab Q12H PRN PO 11/09/17 16:30 (Ambien) 5 mg HS PRN PO 11/09/17 16:30 (M-M-R Ii Inj) 0.5 ml ONCE ONCE SQ 2/20/18 16:00 11/10/17 16:01 (Boostrix Inj) 0.5 ml ONCE ONCE IM 11/10/17 16:00 11/10/17 16:01 (Zofran Inj) 4 mg Q6H PRN IV PUSH 11/09/17 16:30 (Motrin) 600 mg Q6H PRN PO 11/10/17 17:00 (Benadryl Inj) 25 mg Q6H PRN IV PUSH 11/09/17 20:00 Assessment/Plan Problem List: (1) delivery delivered ICD Codes: O82 - Encounter for delivery without indication Status: Acute (2) Preeclampsia ICD Codes: O14.90 - Unspecified pre-eclampsia, unspecified trimester Status: Acute Qualifiers: Qualified Codes: O14.93 - Unspecified pre-eclampsia, third trimester Assessment and Plan 27 y/o female who is POD# 1 s/p CXN. -Continuing mag until this afternoon, BP are stable -Continue routine care. -Percocet and Motrin PRN pain. -Encouraged OOB. Advised pelvic rest for 6 wks. Will need a f/u appt. in 1 wk for incision check. -Re: ctrl, she received a tubal ligation. -D/c in 1-2 more days. wdw OB attending, Kely Johnson MD R1 Nov 10, 2017 08:14
[2017-11-10] MEDS: MAGNESIUM SULFATE 40 GM PREMIX 1,000 ML IV SCH ×2 (08:15→12:37)
[2017-11-10] MEDS: SODIUM CHLORIDE 0.9% FLUSH 10 ML FLUSH IV FLUSH SCH ×2 (09:00→21:39)
[2017-11-10] MEDS ORDERED: IBUPROFEN 600 MG TAB PO PRN ×2 (11:30→17:00)
--- NOTE | 2017-11-10 13:14 | MP ---
cc: MAGALI STANTON MD DATE OF SURGERY 11/09/2017 PREOPERATIVE DIAGNOSIS 36 to 37-week intrauterine with -induced hypertension, previous for repeat . POSTOPERATIVE DIAGNOSIS 36 to 37-week intrauterine with -induced hypertension, previous for repeat . PROCEDURE PERFORMED Repeat low transverse section. SURGEON Magali Stanton MD ANESTHESIA Spinal PREOPERATIVE NOTE The patient is a 27-year-old black female, G6, P4 at 36-37 weeks, previous who desires repeat . Nurse notes blood pressure of 160/100 and 155/110 and was sent from clinic for same. She is followed with family practice physicians. She has 1 to 2+ proteinuria in her urine and 2+ pedal edema with brisk reflexes. It was felt that patient delivery was indicated due to induced hypertension, near term and that she was a previous section for repeat. PROCEDURE The patient was taken to the operating room, placed supine position on the operating room table. After adequate spinal anesthesia was administered, she was prepped and draped for abdominal surgery. The previous Pfannenstiel incision was excised out and the incision carried to the fascia sharply. The fascia was dissected off the rectus muscle and the rectus split in the midline. The peritoneal cavity entered sharply. The incision extended superiorly and inferiorly. The incision stretched open, the bladder blade was placed in the lower uterine incision. The visceral peritoneum reflected off the lower uterine segment, and placed on a bladder blade. A transverse hysterotomy was made and extended bilaterally. Clear fluid noted. A male was delivered at 1522, 's 9 and 9, weight 2730 grams. No complications with delivery. Cord pH was obtained and is pending at the time of dictation. Cord blood obtained and there was delayed cord clamping. The placenta manually extracted. The uterus exteriorized. The hysterotomy closed in a running layer of 0 chromic followed by imbricating suture of same. Hemostasis was achieved and the bladder reapproximated with 2-0 running and 2-0 Vicryl. The uterus elevated and packing around the base of the uterus done. The tubal was then performed. The left tube was elevated with a [place]. An avascular segment of mesosalpinx identified and the hemostat passed through. The hemostat pulled two catgut sutures through that window in the mesosalpinx and the tube was tied fore and aft and the intervening segment excised out and sent to pathology. This was a classic [place] tubal ligation. The same was done on the opposite side without difficulty. The uterus then was replaced in the peritoneal cavity. Blood suctioned from the cul-de-sac and gutters and the parietal peritoneum closed with running 2-0 Vicryl. Muscle reapproximated with stick ties of chromic. The fascia closed in a running layer of 0-Vicryl. Subcutaneous tissues closed with running 3-0 plain catgut suture and the skin closed with 3-0 Monocryl subcuticular stitch. Pressure dressing and Steri-Strips applied. The estimated blood loss was 500 cc. There were no complications. The sponge and needle counts correct times two. The patient sent to recovery in stable condition. MD ANTON Garcia/BERRY /4:21 PM /12:53 PM
[2017-11-10] MEDS ORDERED: DIPHTH/TETANUS/ACEL PERTUSSIS (BOOSTER) 0.5 ML VIAL/PFS IM ONE (16:00)
[2017-11-10] MEDS ORDERED: MEASLES, MUMPS, RUBELLA VACCINE 0.5 ML VIAL SQ ONE (16:00)
[2017-11-10] MEDS: DOCUSATE SODIUM 50 MG/SENNA 8.6 MG TAB PO PRN (21:37)
[2017-11-10] MEDS: IBUPROFEN 600 MG TAB PO PRN (21:38)
[2017-11-11] VITALS: BP 142/87; PULSE 90; RESP 20; TEMP 98
[2017-11-11] MEDS: oxyCODONE/ACETAMINOPHEN 5 MG/325 MG TAB PO PRN ×5 (03:36→21:11)
[2017-11-11] MEDS: IBUPROFEN 600 MG TAB PO PRN ×4 (03:36→21:11)
[2017-11-11 04:00] VITALS: BP 141/88; PULSE 87; RESP 18; TEMP 97.6; O2SAT 95
[2017-11-11 08:00] VITALS: BP 138/82; PULSE 94; RESP 16; TEMP 98.6
--- NOTE | 2017-11-11 08:13 | HHI.OB ---
Subjective Post Operative Day: 2 Remarks Postoperative day number 2. AFVSS overnight. Pain well-controlled. Incision not draining. Decreased lochia. Denies dysuria. No breast tenderness. She is feeding the baby via breast/bottle. Appetite good. No nausea or vomiting. + flatus. no bowel movement. Ambulating well. Denies calf pain, shortness of breath, or cough. Otherwise, she is doing well this morning and has no other complaints. Objective Vitals/I&O Vital Signs Date Time Temp Pulse Resp B/P (MAP) Pulse Ox O2 Delivery O2 Flow Rate FiO2 11/11/17 04:00 97.6 87 18 141/88 (105) 95 11/11/17 00:00 90 20 142/87 (105) 11/11/17 00:00 98.0 11/10/17 20:00 98.1 79 18 138/89 (105) 11/10/17 18:33 86 133/79 (97) 11/10/17 17:10 100 18 135/91 (106) 11/10/17 16:58 18 11/10/17 16:01 99 112/62 (79) 11/10/17 15:06 16 11/10/17 15:01 98.9 101 122/69 (86) 11/10/17 15:00 18 11/10/17 14:01 108 126/72 (90) 11/10/17 14:00 18 11/10/17 13:01 108 131/80 (97) 11/10/17 13:00 17 11/10/17 12:00 103 122/71 (88) 11/10/17 11:25 107 96 11/10/17 11:20 106 96 11/10/17 11:15 105 96 11/10/17 11:09 98.7 18 11/10/17 11:01 104 125/68 (87) 11/10/17 11:00 18 11/10/17 10:00 101 17 129/83 (98) 11/10/17 09:01 99 125/70 (88) 11/10/17 09:00 16 Result Diagram: 11/10/17 0501 11/09/17 1237 Objective Remarks GENERAL: Well-nourished, well-developed patient. CARDIOVASCULAR: Regular rate and rhythm without murmurs, gallops, or rubs. RESPIRATORY: Breath sounds equal bilaterally. No accessory muscle use. ABDOMEN/GI: Abdomen soft, non-tender, bowel sounds present. Incision: Clean, dry and intact. Fundus: Firm, non-tender at umbilicus. GENITOURINARY: Light to moderate bleeding. EXTREMITIES: No cyanosis or edema, non-tender, without signs of DVT. Medications and IVs Current Medications Medications (Trade) Dose Ordered Sig/Ann Route Start Time Stop Time Status Last Admin Lactated Ringer's 1,000 ml @ 150 mls/hr Q6H40M IV 11/09/17 12:45 (Bicitra Liq) 30 ml MANAGER COSMETIC PO 11/09/17 13:45 11/13/17 13:44 11/09/17 14:17 (NS Flush) 2 ml BID IV FLUSH 11/09/17 21:00 11/10/17 21:39 (NS Flush) 2 ml UNSCH PRN IV FLUSH 11/09/17 16:30 (Mylicon Chew) 80 mg QID PRN PO 11/09/17 16:30 11/10/17 09:37 (Tylenol) 650 mg Q6H PRN PO 11/09/17 16:30 (Percocet 5-325 Mg) 1 tab Q4H PRN PO 11/09/17 16:30 (Percocet 5-325 Mg) 2 tab Q4H PRN PO 11/09/17 16:30 11/11/17 03:36 (Romina-Colace) 2 tab Q12H PRN PO 11/09/17 16:30 11/10/17 21:37 (Ambien) 5 mg HS PRN PO 11/09/17 16:30 (Zofran Inj) 4 mg Q6H PRN IV PUSH 11/09/17 16:30 (Benadryl Inj) 25 mg Q6H PRN IV PUSH 11/09/17 20:00 (Motrin) 600 mg Q6H PRN PO 11/10/17 11:30 11/11/17 03:36 Assessment/Plan Problem List: (1) delivery delivered ICD Codes: O82 - Encounter for delivery without indication Status: Acute (2) Preeclampsia ICD Codes: O14.90 - Unspecified pre-eclampsia, unspecified trimester Status: Acute Qualifiers: Qualified Codes: O14.93 - Unspecified pre-eclampsia, third trimester Assessment and Plan 27 y/o female who is POD# 2 s/p CXN. -BPs are stable -Continue routine care. -Percocet and Motrin PRN pain. -Encouraged OOB. Advised pelvic rest for 6 wks. Will need a f/u appt. in 1 wk for incision check. -Re: ctrl, she received a tubal ligation. -D/c tomorrow. wdw OB attending, Kely Pleitez MD R1 Nov 11, 2017 08:13
[2017-11-11] MEDS: DOCUSATE SODIUM 50 MG/SENNA 8.6 MG TAB PO PRN ×2 (09:09→21:11)
[2017-11-11] MEDS: LACTATED RINGER'S 1000 ML INJ 1,000 ML IV SCH ×2 (18:05→19:24)
[2017-11-11] MEDS: SODIUM CHLORIDE 0.9% FLUSH 10 ML FLUSH IV FLUSH SCH (19:23)
[2017-11-12] MEDS: IBUPROFEN 600 MG TAB PO PRN ×3 (03:17→14:31)
[2017-11-12] MEDS: oxyCODONE/ACETAMINOPHEN 5 MG/325 MG TAB PO PRN ×2 (03:18→07:10)
[2017-11-12] MEDS ORDERED: IBUP-232 PO (08:20)
[2017-11-12] MEDS ORDERED: OXYC1TAB63 PO (08:20)
--- NOTE | 2017-11-12 08:24 | HHI.DCPOC ---
Discharge Care Plan Diagnosis: (1) Preeclampsia (2) delivery delivered Report Symptoms to Your Doctor -Temperature above 100.5 degrees -Redness, of incision or excessive or foul smelling drainage -Unusual pain or calf pain -Increased vaginal bleeding -Painful or difficulty urinating -Feelings of extreme sadness or anxiety after 2 weeks Goals to Promote Your Health * To prevent worsening of your condition and complications * To maintain your health at the optimal level Directions to Meet Your Goals Take your medications as prescribed Follow your dietary instruction Follow activity as directed Ensure plenty of rest for recovery Drink fluids for hydration Keep your appointments as scheduled Take your immunizations and boosters as scheduled If your symptoms worsen call your PCP, if no PCP go to Urgent Care Center or Emergency Room Smoking is Dangerous to Your Health. Avoid second hand smoke Call the 24-hour crisis hotline for domestic abuse at Kely Santiago MD R1 Nov 12, 2017 08:24
--- NOTE | 2017-11-12 08:41 | HHI.OB ---
Subjective Post Operative Day: 3 Remarks Postoperative day number 3. AFVSS overnight. Pain well-controlled. Incision not draining. Decreased lochia. Denies dysuria. No breast tenderness. She is feeding the baby via bottle. Appetite good. No nausea or vomiting. + flatus. no bowel movement. Ambulating well. Denies calf pain, shortness of breath, or cough. Otherwise, she is doing well this morning and has no other complaints. Objective Result Diagram: 11/10/17 0501 11/09/17 1237 Objective Remarks GENERAL: Well-nourished, well-developed patient. CARDIOVASCULAR: Regular rate and rhythm without murmurs, gallops, or rubs. RESPIRATORY: Breath sounds equal bilaterally. No accessory muscle use. ABDOMEN/GI: Abdomen soft, non-tender, bowel sounds present. Incision: Clean, dry and intact. Fundus: Firm, non-tender at umbilicus. GENITOURINARY: Light to moderate bleeding. EXTREMITIES: No cyanosis or edema, non-tender, without signs of DVT. Medications and IVs Current Medications Medications (Trade) Dose Ordered Sig/Ann Route Start Time Stop Time Status Last Admin Lactated Ringer's 1,000 ml @ 150 mls/hr Q6H40M IV 11/09/17 12:45 (Bicitra Liq) 30 ml INVENTORY CONTROL SUPERVISOR PO 11/09/17 13:45 11/13/17 13:44 11/09/17 14:17 (NS Flush) 2 ml BID IV FLUSH 11/09/17 21:00 11/10/17 21:39 (NS Flush) 2 ml UNSCH PRN IV FLUSH 11/09/17 16:30 (Mylicon Chew) 80 mg QID PRN PO 11/09/17 16:30 11/10/17 09:37 (Tylenol) 650 mg Q6H PRN PO 11/09/17 16:30 (Percocet 5-325 Mg) 1 tab Q4H PRN PO 11/09/17 16:30 (Percocet 5-325 Mg) 2 tab Q4H PRN PO 11/09/17 16:30 11/12/17 07:10 (Romina-Colace) 2 tab Q12H PRN PO 11/09/17 16:30 11/11/17 21:11 (Ambien) 5 mg HS PRN PO 11/09/17 16:30 (Zofran Inj) 4 mg Q6H PRN IV PUSH 11/09/17 16:30 (Benadryl Inj) 25 mg Q6H PRN IV PUSH 11/09/17 20:00 (Motrin) 600 mg Q6H PRN PO 11/10/17 11:30 11/12/17 03:17 Assessment/Plan Problem List: (1) delivery delivered ICD Codes: O82 - Encounter for delivery without indication Status: Acute (2) Preeclampsia ICD Codes: O14.90 - Unspecified pre-eclampsia, unspecified trimester Status: Acute Qualifiers: Qualified Codes: O14.93 - Unspecified pre-eclampsia, third trimester Assessment and Plan 27 y/o female who is POD# 3 s/p CXN. -BPs are stable -Continue routine care. -Percocet and Motrin PRN pain. -Encouraged OOB. Advised pelvic rest for 6 wks. Will need a f/u appt. in 1 wk for incision check. -Re: ctrl, she received a tubal ligation. -D/c today. wdw OB attending, Kely Pride MD R1 Nov 12, 2017 08:41
[2017-11-12] MEDS: DOCUSATE SODIUM 50 MG/SENNA 8.6 MG TAB PO PRN (14:30)
== END 2017-11-12 14:36 | disposition home or self-care (01) | DRG 766 ==
LOC: HOBED 11:41 → H2EB 12:29 → H2EA 15:19 → H1EA 11-10 16:39
PROVIDERS: ADMIT Obstetrics & Gynecology Maternal & Fetal Medicine; ATTEND Obstetrics & Gynecology Maternal & Fetal Medicine
PROC: 10D00Z1 Extraction of Products of Conception, Low, Open Approach (ICD-10-PCS; principal; 2017-11-09)
PROC: 0UB70ZZ Excision of Bilateral Fallopian Tubes, Open Approach (ICD-10-PCS; 2017-11-09)
DX: O14.94 Unspecified pre-eclampsia, complicating childbirth (principal); Z30.2 Encounter for sterilization; O34.211 Maternal care for low transverse scar from previous cesarean delivery; Z37.0 Single live birth; Z3A.36 36 weeks gestation of pregnancy
CPT/HCPCS: 80053; 80307; 81001; 82805; 85025; 86850; 86900; 86901; 87086; 88302; 99285; J0690; J1100; J1200; J1885; J2274; J2405; J2590; J3010; J3475; J7120